=== PATIENT | male | born 1980 | race African-American/Black ===

== ENCOUNTER 2020-05-22 07:37 | Day surgery (SDC) | payer MEDICAID ==
[2020-05-17 16:15] LABS: BASOPHIL % 0.8 % (0-2); PLATELET COUNT 258 x10^3mcL (130-400)
[2020-05-17 16:22] LABS: RED CELL DISTRIBUTION WIDTH 16.1 % (11.5-14.5)
[2020-05-17 16:28] LABS: ALBUMIN 4.1 g/dL (3.4-5.0); ALKALINE PHOSPHATASE 71 U/L (46-116); ALT/SGPT 28 U/L (16-63); AST/SGOT 20 U/L (15-37); CALCIUM 9.2 mg/dL (8.5-10.1); CHLORIDE SERUM 99 mmol/L (98-107); GFR1 > 60 mL/min; GLUCOSE SERUM 112 mg/dL (74-106); POTASSIUM SERUM 3.5 mmol/L (3.5-5.1); SODIUM SERUM 137 mmol/L (136-145)
[2020-05-17 16:29] LABS: TOTAL PROTEIN, SERUM 8.3 g/dL (6.4-8.2)
[2020-05-17 17:20] LABS: microscopic required? YES; urine erythrocyte NEGATIVE (NEGATIVE)
--- NOTE | 2020-05-18 15:21 | NUR ---
EKG AND LAB TESTS SENT TO [facility] FOR REVIEWED. EKG AND LAB TESTS OKAY FOR SURGERY ON 05-22-[address] Jolanta DESAI . DOCTOR EXPRESSED CONCERN FOR HIGH WBC.
[~2020-05-22] VITALS: Ht 172.7 cm; Wt 106.6 kg
[2020-05-22 07:57] VITALS: BP 153/87
[2020-05-22 08:12] VITALS: BP 153/87
[2020-05-22 13:08] VITALS: BP 145/90
== END 2020-05-22 12:55 | disposition home or self-care (01) ==
LOC: DS 07:37 → OR 07:37 → DS 12:55
PROVIDERS: ATTEND Urology
DX: N45.1 Epididymitis (principal); N43.3 Hydrocele, unspecified; N30.80 Other cystitis without hematuria; I10 Essential (primary) hypertension; F17.210 Nicotine dependence, cigarettes, uncomplicated; Z79.899 Other long term (current) drug therapy; Z20.828 Contact with and (suspected) exposure to other viral communicable diseases
CPT/HCPCS: J0696; J2405; J2710; J3010; J3490; J7120; Q0092; U0003-CS